=== PATIENT | female | born 1965 | race Hispanic/Latino ===

== ENCOUNTER 2018-08-15 16:44 | Emergency (ER) | payer OTHER ==
[~2018-08-15] VITALS: Ht 142.2 cm; Wt 65.8 kg
[2018-08-15] MEDS ORDERED: KEPPRA500 MG PO ×2 (16:49→19:52)
[2018-08-15] MEDS ORDERED: GABAPENTIN300 MG PO (16:49)
[2018-08-15] MEDS ORDERED: DEPAKOTE500 MG (16:49)
[2018-08-15] MEDS ORDERED: DILANTIN100 MG (16:49)
--- OUTSIDE RECORDS SUMMARY | 2018-08-15 16:50 | XMS REPORT ---
Author Author [facility] Address Unknown Phone Unavailable Care Team Providers Care Rehab/Pre Vocational Counselor Name Role Phone Unavailable Unavailable Payers Payer Name Policy Type Policy Number Effective Date Expiration Date Problems This patient has no known problems. Allergies, Adverse Reactions, Alerts Allergy Name Allergy Type Status Severity Reaction(s) Onset Date Inactive Date Treating Clinician Comments No Known Drug Allergies DA Active U 2015-02-17 00:00:00 Medications This patient has no known medications. Encounters Start Date/Time End Date/Time Encounter Type Admission Type Attending Clinicians [facility] Facility Care Department Encounter ID 2018-04-24 18:03:31 Inpatient [facility] [id number] 2018-04-23 14:00:03 Inpatient [facility] [id number] 2018-10-03 00:00:00 2018-10-03 00:00:00 Outpatient [facility] [id number] 2018-09-10 00:00:00 2018-09-10 00:00:00 Outpatient [facility] [id number] 2018-08-28 00:00:00 2018-08-28 00:00:00 Outpatient [facility] [id number] 2018-08-13 09:06:00 2018-08-13 09:06:00 Emergency [facility] [id number] 2018-08-13 07:22:11 2018-08-13 07:22:11 Outpatient [facility] [id number] 2018-07-23 10:40:15 2018-07-23 10:40:15 Outpatient [facility] [id number] 2018-07-11 10:50:56 2018-07-11 10:50:56 Outpatient [facility] [id number] 2018-06-12 13:40:54 2018-06-12 13:40:54 Outpatient [facility] [id number] 2018-06-06 00:00:00 2018-06-06 00:00:00 Outpatient [facility] [id number] 2018-05-30 08:36:49 2018-05-30 08:36:49 Outpatient [facility] [id number] 2018-05-11 10:41:43 2018-05-11 10:41:43 Outpatient [facility] [id number] 2018-05-08 09:52:37 2018-05-08 09:52:37 Outpatient [facility] [id number] 2018-05-04 10:15:39 2018-05-04 10:15:39 Outpatient [facility] [id number] 2018-05-03 10:47:28 2018-05-03 10:47:28 Outpatient [facility] [id number] 2018-04-30 00:00:00 2018-04-30 00:00:00 Outpatient [facility] [id number] 2018-04-27 10:11:19 2018-04-27 10:11:19 Outpatient [facility] [id number] 2018-04-23 06:30:00 2018-04-23 06:30:00 Inpatient [facility] [id number] 2018-04-23 00:00:00 2018-04-23 00:00:00 Outpatient [facility] [id number] 2018-04-18 08:41:18 2018-04-18 08:41:18 Outpatient [facility] [id number] 2018-04-09 13:14:49 2018-04-09 13:14:49 Outpatient [facility] [id number] 2018-04-09 00:00:00 2018-04-09 00:00:00 Outpatient [facility] [id number] 2018-03-07 13:14:06 2018-03-07 13:14:06 Outpatient [facility] [id number] 2018-03-07 11:20:38 2018-03-07 11:20:38 Outpatient [facility] [id number] 2018-02-05 08:58:33 2018-02-05 08:58:33 Outpatient [facility] [id number] 2018-01-30 14:35:07 2018-01-30 14:35:07 Outpatient [facility] [id number] 2018-01-29 09:03:12 2018-01-29 09:03:12 Outpatient [facility] [id number] 2018-01-25 11:09:19 2018-01-25 11:09:19 Outpatient [facility] [id number] 2017-12-26 15:41:45 2017-12-26 15:41:45 Outpatient [facility] [id number] 2017-11-28 09:21:13 2017-11-28 09:21:13 Outpatient [facility] [id number] 2017-11-20 08:22:13 2017-11-20 08:22:13 Outpatient [facility] [id number] 2017-11-09 09:03:28 2017-11-09 09:03:28 Outpatient [facility] [id number] 2017-11-09 08:06:52 2017-11-09 08:06:52 Outpatient [facility] [id number] 2017-10-25 00:00:00 2017-10-25 00:00:00 Outpatient [facility] [id number] 2017-10-24 14:07:46 2017-10-24 14:07:46 Outpatient [facility] [id number] 2017-10-03 00:00:00 2017-10-03 00:00:00 Outpatient [facility] [id number] 2017-09-22 14:17:55 2017-09-22 14:17:55 Outpatient [facility] [id number] 2017-09-22 11:18:00 2017-09-22 11:18:00 Emergency [facility] MED [id number] 2017-08-17 08:07:41 2017-08-17 08:07:41 Outpatient [facility] [id number] 2017-07-21 10:32:00 2017-07-21 10:32:00 Emergency [facility] MED [id number] 2017-07-19 00:00:00 2017-07-19 00:00:00 Outpatient [facility] [id number] 2017-07-11 13:48:37 2017-07-11 13:48:37 Outpatient [facility] [id number] 2017-07-05 13:40:15 2017-07-05 13:40:15 Outpatient [facility] [id number] 2017-07-04 14:33:36 2017-07-04 14:33:36 Outpatient [facility] [id number] 2017-07-03 00:00:00 2017-07-03 00:00:00 Outpatient [facility] [id number] 2017-06-29 00:00:00 2017-06-29 00:00:00 Outpatient [facility] MED [id number] 2017-06-23 07:56:00 2017-06-23 07:56:00 Outpatient [facility] [id number] 2017-06-22 00:00:00 2017-06-22 00:00:00 Outpatient [facility] [id number] 2017-06-20 14:57:38 2017-06-20 14:57:38 Outpatient [facility] [id number] 2017-06-20 12:51:48 2017-06-20 12:51:48 Outpatient [facility] [id number] 2017-06-07 07:53:55 2017-06-07 07:53:55 Outpatient [facility] [id number] 2017-05-31 12:45:21 2017-05-31 12:45:21 Outpatient [facility] [id number] 2017-05-30 08:38:24 2017-05-30 08:38:24 Outpatient [facility] [id number] 2017-05-17 12:33:18 2017-05-17 12:33:18 Outpatient [facility] [id number] 2017-05-17 10:23:46 2017-05-17 10:23:46 Outpatient [facility] [id number] 2017-05-12 00:00:00 2017-05-12 00:00:00 Outpatient [facility] [id number] 2017-04-28 00:00:00 2017-04-28 00:00:00 Outpatient [facility] [id number] 2017-04-27 09:03:25 2017-04-27 09:03:25 Outpatient [facility] [id number] 2017-04-27 09:02:05 2017-04-27 09:02:05 Outpatient [facility] [id number] 2017-04-19 14:57:50 2017-04-19 14:57:50 Outpatient [facility] [id number] 2017-04-19 14:17:06 2017-04-19 14:17:06 Outpatient [facility] [id number] 2017-04-13 10:16:01 2017-04-13 10:16:01 Outpatient [facility] [id number] 2017-03-30 10:10:52 2017-03-30 10:10:52 Outpatient [facility] [id number] 2017-03-30 07:19:25 2017-03-30 07:19:25 Outpatient [facility] [id number] 2017-03-22 13:27:54 2017-03-22 13:27:54 Outpatient [facility] [id number] 2017-03-16 14:34:10 2017-03-16 14:34:10 Outpatient [facility] [id number] 2017-03-16 11:55:36 2017-03-16 11:55:36 Outpatient [facility] [id number] 2017-03-08 07:55:00 2017-03-08 07:55:00 Outpatient [facility] [id number] 2017-03-04 13:29:36 2017-03-04 13:29:36 Outpatient [facility] [id number] 2017-02-21 08:35:55 2017-02-21 08:35:55 Outpatient [facility] [id number] 2017-02-13 10:26:45 2017-02-13 10:26:45 Outpatient [facility] [id number] 2017-02-13 00:00:00 2017-02-13 00:00:00 Outpatient [facility] [id number] 2017-01-20 11:28:34 2017-01-20 11:28:34 Outpatient [facility] [id number] 2017-01-20 11:26:20 2017-01-20 11:26:20 Outpatient [facility] [id number] 2017-01-20 11:01:21 2017-01-20 11:01:21 Outpatient [facility] [id number] 2017-01-20 09:23:58 2017-01-20 09:23:58 Outpatient [facility] [id number] 2017-01-06 11:27:32 2017-01-06 11:27:32 Outpatient [facility] [id number] 2016-12-29 00:00:00 2016-12-29 00:00:00 Outpatient [facility] [id number] 2016-12-21 09:39:18 2016-12-21 09:39:18 Outpatient [facility] [id number] 2016-12-21 07:57:01 2016-12-21 07:57:01 Outpatient [facility] [id number] 2016-05-12 09:40:49 2016-05-12 09:40:49 Outpatient [facility] [id number]
--- NOTE | 2018-08-15 17:29 | NUR ---
Patient appeared to have another seizure like episode. MD notified and at bedside.
[2018-08-15 18:00] LABS: BASOPHILS # (AUTO) 0.1 (0.0-0.1); BASOPHILS % 0.8 % (0.0-1.0); EOSINOPHILS # (AUTO) 0.2 (0.0-0.4); EOSINOPHILS % 2.8 % (0.0-6.0); HEMATOCRIT 40.9 % (34.2-44.1); HEMOGLOBIN 13.3 g/dL (12.0-16.0); LYMPHOCYTES # (AUTO) 2.8 (1.0-3.2); LYMPHOCYTES % 35.3 % (18.0-39.1); MEAN CORPUSCULAR HEMOGLOBIN 28.7 pg (28-32); MEAN CORPUSCULAR HGB CONC 32.5 g/dL (31-35); MEAN CORPUSCULAR VOLUME 88.1 fL (81-99); MONOCYTES # (AUTO) 0.7 (0.2-0.8); MONOCYTES % 8.3 % (4.4-11.3); NEUTROPHILS # (AUTO) 4.1 (2.1-6.9); NEUTROPHILS % 52.5 % (38.7-80.0); PLATELET COUNT 366 x10e3/uL (140-360); RED BLOOD COUNT 4.64 x10e6/uL (3.6-5.1); RED CELL DISTRIBUTION WIDTH 15.1 % (11.7-14.4)
[2018-08-15 18:03] LABS: BILIRUBIN,URINE NEGATIVE (NEGATIVE); CLARITY,URINE SL CLOUDY (CLEAR); COLOR,URINE YELLOW (YELLOW); KETONES,URINE NEGATIVE (NEGATIVE); LEUKOCYTE ESTERASE ,URINE MODERATE (NEGATIVE); NITRITE,URINE NEGATIVE (NEGATIVE); PROTEIN,URINE DIPSTICK NEGATIVE (NEGATIVE); URINE UROBILINOGEN 0.2 mg/dL (0.2 - 1)
[2018-08-15 18:17] LABS: AMPHETAMINES SCREEN,URINE NEGATIVE (NEGATIVE); PHENCYCLIDINE SCREEN,URINE NEGATIVE (NEGATIVE)
[2018-08-15 18:18] LABS: BENZODIAZEPINES SCREEN,URINE POSITIVE (NEGATIVE)
[2018-08-15 18:24] LABS: ALANINE AMINOTRANSFERASE 43 IU/L (0-55); ALBUMIN 3.6 g/dL (3.5-5.0); ALBUMIN/GLOBULIN RATIO 1.1 (0.8-2.0); ALKALINE PHOSPHATASE 110 IU/L (40-150); ANION GAP 15.1 mmol/L (8-16); BLOOD UREA NITROGEN 18 mg/dL (7-26); BUN/CREATININE RATIO 23 (6-25); CALCIUM 9.2 mg/dL (8.4-10.2); CARBON DIOXIDE 22 mmol/L (22-29); CHLORIDE 105 mmol/L (98-107); CREATININE, SERUM 0.78 mg/dL (0.57-1.11); EST GLOMERULAR FILTRATION RATE > 60 ML/MIN (60-); GLUCOSE 113 mg/dL (74-118); POTASSIUM 4.1 mmol/L (3.5-5.1); SODIUM 138 mmol/L (136-145)
[2018-08-15 18:26] LABS: BACTERIA,URINE MANY /HPF; EPITHELIAL CELLS,URINE MODERATE /LPF; RBC,URINE 0-5 /HPF (0-5); RENAL EPITHELIAL CELLS,URINE FEW
[2018-08-15] MEDS ORDERED: LORAZEPAM INJ 2 MG/ML VIAL ONE (18:32)
--- NOTE | 2018-08-15 18:35 | NUR ---
Patient had another seizure at this time that lasted approx 3 minutes. 2mg IV ativan administered. Patient post ictal at this time. VS stable.
[2018-08-15] MEDS ORDERED: LEVETIRACETAM 500MG/5ML VIAL 1,500 MG in SODIUM CHLORIDE 0.9% 100 ML 100 ML IV SCH (18:45)
[2018-08-15] MEDS ORDERED: LORAZEPAM INJ 2 MG/ML VIAL IV ONE (18:45)
[2018-08-15] MEDS ORDERED: LEVETIRACETAM 500MG/5ML VIAL 1,500 MG in SODIUM CHLORIDE 0.9% 100 ML 100 ML IV ONE (19:00)
--- NOTE | 2018-08-15 19:00 | NUR ---
pt awake alert skin w/d resp nonlab, nad noted. family at bedside. pt does not appear post-ictal at this time
--- NOTE | 2018-08-15 20:05 | NUR ---
dispo complete, went into room to discharge patient, removed monitors, pt changed into her clothes, when approached pt to d/c s/l, pt laid back onto bed, eyes open, began flexing arms and shaking arms, shaking legs, flexing at the hip and knee, thrusting pelvis forward and backwards. pt was positioned on left side, family at bedside, episode lasted approximately 2 minutes, no incontinence of bowel or bladder, spo2 was 100% immediately following episode, did not appear post-ictal, but was lying on back with eyes closed after episode. md informed. will continue to monitor.
--- NOTE | 2018-08-15 20:37 | NUR ---
family pressed call boykin stating "she's doing it again." to room with Dr Plaza and observed episode, which was same presentation as previous, spo2 remained 100% during entire episode and afterwards, pt pulls arms away when attempting to passively extend arms. no incontinence noted. does not appear post-ictal following episode but continues to lie on bed with eyes closed
--- NOTE | 2018-08-15 21:40 | NUR ---
pt states she is ready to go home now. states she has been having these problems since she was a child, states she will follow-up with her neurologist. awake alert skin w/d resp nonlab. nad noted. dc'd REJ. assisted to vehicle via wheelchair.
== END 2018-08-15 21:40 | disposition home or self-care (01) ==
LOC: ER 16:48
DX: Z71.1 Person with feared health complaint in whom no diagnosis is made (principal)
CPT/HCPCS: 36415; 80053; 80307; 81001; 82542; 85025; 87086; 99284; J1953; J2060